=== PATIENT | female | born 1995 | race Caucasian/White ===

== ENCOUNTER 2018-07-08 22:39 | Inpatient (IN) | END 2018-07-11 13:10 | disposition home or self-care (01) | DRG 781 ==

== ENCOUNTER 2018-09-21 09:51 | Outpatient (CLI) | END 2018-09-21 12:30 | disposition home or self-care (01) ==

== ENCOUNTER 2018-10-26 22:29 | Outpatient (CLI) | payer MEDICAID ==
[~2018-10-26] VITALS: Ht 157.5 cm; Wt 60.2 kg
[2018-10-26 23:10] VITALS: BP 128/60; PULSE 57; RESP 18
[2018-10-26] MEDS ORDERED: PREN-19 PO (23:18)
--- NOTE | 2018-10-27 00:53 | PN ---
Triage Information Date/Time October 26, 2018 Reason for visit: Rule out IUGR Weeks of Gestation 39 weeks /Para 1 para 0 Diabetes: none Hypertention: none Additional information 23-year-old with IUP at 39 weeks was sent to triage for ultrasound rule out IUGR due to size less than dates and evaluation in the office visit. She de nies any leaking of fluid, vaginal bleeding decreased movement or uterine contractions. Objective Vital Signs Date Temp Pulse Resp B/P (MAP) Pulse Ox O2 O2 Flow FiO2 Time Delivery Rate 10/26/18 97.8 57 18 128/60 Room Air 23:10 (82) Heart Rate: 130's Heart Rate Comments Category 1 Contractions: None Results/Medications Imaging Results PROCEDURE: US OB. CLINICAL INDICATION: Uterine contractions TECHNIQUE: Pelvic ultrasound performed for biophysical profile. COMPARISON: 09/21/2018 FINDINGS: Single intrauterine gestation present with heart rate at 134 beats per minute. Presentation is cephalic. Placenta is anterior, grade II. Biophysical profile score is 8/8 (breathing=2, movement=2, tone =2, fluid volume=2). Amniotic fluid volume is within normal limits, with ORLIN = 10.82 cm. RPTAT:HJJR IMPRESSION: Biophysical profile score 8/8. PROCEDURE: US OB CLINICAL INDICATION: . labor. TECHNIQUE: Multiple transabdominal sonographic images of the pelvis and gravid uterus were obtained. The images were reviewed on a PACS workstation. COMPARISON: 09/13/2018. FINDINGS: Cervix: Not visualized Gestation: Single viable intrauterine gestation. Cardiac activity: 139 beats per minute. Presentation: Cephalic Placenta: Location: Anterior. Appearance: Grade II. No previa or abruption. Amniotic Fluid: ORLIN = 10.8 cm Measurements: BPD = 9.16 cm, 37 weeks 1 days HC = 32.78 cm, 37 weeks 2 days AC = 33.08 cm, 37 weeks 0 days FL = 7.20 cm, 36 weeks 6 days Gestational Age: AUA estimated gestational age: 37 weeks 1 days LMP estimated gestational age: 38 weeks 6 days AUA estimated date of delivery: 11/15/2018 The EFW = 3093 g, 23 %ile based on LMP age. Structures: Anatomic survey is not performed RPTAT:HJJR IMPRESSION: 1. Single living intrauterine gestation in cephalic presentation of 37 weeks 1 days by ultrasound criteria. 2. Estimated date of delivery of 11/15/2018. 3. The estimated weight is 3093 g. 4. No abnormality identified. Disposition: Discharge Assessment/Plan IUP at 39 weeks Size appears to be less than dates however ultrasound showed normal growth. E stimated weight 23 percentile. testing reassuring Normal amniotic fluid. BPP: 06/01 NST: Category 1 No evidence of labor Patient will be discharged home Strict labor precautions kick count and follow-up within 48 hours with primary OB office discussed with the patient Patient verbalized understanding. All questions were answered to patient's best satisfaction OVIDIO VIDAL MD Oct 27, 2018 00:53
--- NOTE | 2018-10-27 02:59 | TRIAGE ---
OB Triage Datetime Report Generated by CPN: 10/27/2018 02:58 Datetime: 10/27/2018 00:16 Stage of : OB Triage Labor Evaluation Monitor Mode: External Quality: Mild Pattern: Normal: <= 5 Contractions in 10 Minutes Resting Tone Prosper: Relaxed Heart Rate FHR Baseline Rate: 130 Monitor Mode: External US FHR Baseline Changes: No Baseline Change Variability: Moderate 6-25 bpm Accelerations: 15X15 Decelerations: None Category: Category I Datetime: 10/26/2018 23:30 Stage of : OB Triage Labor Evaluation Monitor Mode: External Quality: Mild Pattern: Normal: <= 5 Contractions in 10 Minutes Resting Tone Prosper: Relaxed Heart Rate FHR Baseline Rate: 130 Monitor Mode: External US FHR Baseline Changes: No Baseline Change Variability: Moderate 6-25 bpm Accelerations: 15X15 Decelerations: None Category: Category I Datetime: 10/26/2018 22:48 Stage of : OB Triage Maternal Assessment Level of Consciousness: Fully Conscious Headache: Denies Blurred Vision: No Respiratory Effort: Unlabored Nausea/Vomiting: Denies RUQ Epigastric Pain: Denies Facial Edema: None Labor Evaluation Monitor Mode: External Resting Tone Prosper: Relaxed Heart Rate FHR Baseline Rate: 130 Monitor Mode: External US Pain Assessment Pain Scale: 0 Pain Presence: None/Denies Pain Type: N/A Datetime: 10/26/2018 22:30 Time of Arrival: 10/26/2018 22:21 EGA: 38.6 Arrived By: Ambulatory Arrived From: Home Chief Complaint: sent from clinic to [facility] size<dates Movement: Present Contractions: Denies/Absent Rupture of Membranes: Denies Vaginal Bleeding: None Vaginal Discharge: Denies Recent Sexual Intercouse: Denies Abdominal Trauma: Not Applicable Patient Complaints: None Time Provider Notified: 10/26/2018 22:30 Provider Notified: Dr Tong Initial Plan: EFM,EFW,BPP Datetime: 09/21/2018 10:31 Fall Risk Assessment Fall Score: 0 Fall Risk Score Definition: No Risk: No action required Datetime: 09/21/2018 10:30 EGA: 33.6 Datetime: 07/11/2018 08:16 Fall Risk Assessment Fall Score: 20 Fall Risk Score Definition: No Risk: No action required Datetime: 07/10/2018 19:25 Fall Risk Assessment Fall Score: 0 Fall Risk Score Definition: No Risk: No action required Datetime: 07/10/2018 07:24 Fall Risk Assessment Fall Score: 20 Fall Risk Score Definition: No Risk: No action required Datetime: 07/09/2018 19:50 Fall Risk Assessment Fall Score: 20 Fall Risk Score Definition: No Risk: No action required Datetime: 07/08/2018 23:45 Fall Risk Assessment Fall Score: 0 Fall Risk Score Definition: No Risk: No action required
== END 2018-10-27 00:47 | disposition home or self-care (01) ==
LOC: OBT 22:29 → L-D 22:30 → OBT 10-27 00:47
PROVIDERS: ATTEND Obstetrics & Gynecology
DX: O26.843 Uterine size-date discrepancy, third trimester (principal); Z3A.39 39 weeks gestation of pregnancy
CPT/HCPCS: 76815; 76818; Z7500; G0463

== ENCOUNTER 2018-11-07 06:00 | Inpatient (IN) | payer MEDICAID ==
[~2018-11-07] VITALS: Ht 157.5 cm; Wt 60.5 kg
[~2018-11-07 06:00] MED LIST: PREN-19 PO
[2018-11-07 07:30] VITALS: BP 124/71; PULSE 71; RESP 20
[2018-11-07] MEDS ORDERED: LACTATED RINGER'S 1,000 ML IV PRN (07:36)
[2018-11-07] MEDS ORDERED: METHYLERGONOVINE 0.2 MG INJ IM PRN (08:00)
[2018-11-07] MEDS ORDERED: LIDOCAINE 1% (MPF) 30 ML INJ INJ PRN (08:00)
[2018-11-07] MEDS ORDERED: CARBOPROST 250 MCG INJ IM PRN (08:00)
[2018-11-07] MEDS ORDERED: MISOPROSTOL 200 MCG TAB PR PRN (08:00)
[2018-11-07] MEDS ORDERED: IBUPROFEN 600 MG TAB PO PRN (08:00)
[2018-11-07] MEDS ORDERED: OXYTOCIN 30 UNITS/LR 500 ML IV PRN (08:00)
[2018-11-07] MEDS ORDERED: BUTORPHANOL 1 MG INJ IV PRN (08:00)
[2018-11-07] MEDS ORDERED: BUTORPHANOL 2 MG INJ IV PRN (08:00)
[2018-11-07] MEDS ORDERED: OXYTOCIN 30 UNITS/LR 500 ML IV SCH ×2 (08:00)
[2018-11-07 08:30] VITALS: Ht 157.5 cm; Wt 60.5 kg
[2018-11-07] MEDS: LACTATED RINGER'S 1,000 ML IV SCH ×2 (09:21→16:36)
[2018-11-07] MEDS ORDERED: MISOPROSTOL 50 MCG CAPSULE PO SCH (10:00)
[2018-11-08] MEDS: LACTATED RINGER'S 1,000 ML IV SCH ×2 (00:41→06:52)
[2018-11-08] MEDS ORDERED: FENTAnyl 2MCG/ML-ROPIV 0.2% 100 ML ONE (00:43)
--- NOTE | 2018-11-08 00:52 | PREAC ---
Date/Time of Note Date/Time of Note DATE: 11/08/18 TIME: 00:51 Anesthesia Eval and Record Evaluation Time Pre-Procedure Interview DATE: 11/08/18 TIME: 00:51 Age 23 Sex female NPO: 8 hrs Preoperative diagnosis Labor Pain Planned procedure Labor Epidural Past Medical History Past Medical History: Includes Heme: Anemia : : (1), Para: (0), Gestational age: (39) Surgery & Anesthesia Issues No known issue Meds Anticoagulation: No Beta Mary within 24 hr: No Reason Beta Mary not given: Pt. not on B-Mary Reported Medications Vit #76/Iron,Carb/FA (Prenatabs Rx Tablet) 1 Each Tablet, 1 EACH PO DAILY, TAB 10/26/18 Current Medications Lactated Ringer's 1,000 ml @ 125 mls/hr Q8H IV Last administered on 11/08/18at 00:41; Admin Dose 125 MLS/HR; Start 11/07/18 at 07:36 Butorphanol Tartrate (Stadol) 1 mg Q2H PRN IV PAIN; Start 11/07/18 at 08:00 Butorphanol Tartrate (Stadol) 2 mg Q2H PRN IV PAIN; Start 11/07/18 at 08:00 Lidocaine (Xylocaine 1% (Mpf)) 30 ml ONCE PRN INJ EPISIOTOMY; Start 11/07/18 at 08:00 Oxytocin/Lactated Ringer's 500 ml @ 500 mls/hr ONCE POST IV ; Start 11/07/18 at 08:00 Oxytocin/Lactated Ringer's 500 ml @ 125 mls/hr POST IV ; Start 11/07/18 at 08:00 Ibuprofen (Motrin) 600 mg ONCE PRN PO PAIN LEVEL 1-5; Start 11/07/18 at 08:00 Lactated Ringer's 1,000 ml @ 2,000 mls/hr Q30M PRN IV ANESTHESIA Last administered on 11/08/18at 00:02; Admin Dose 2,000 MLS/HR; Start 11/07/18 at 07:36 Oxytocin/Lactated Ringer's 500 ml @ 0 mls/hr ONCE PRN IV VAGINAL BLEEDING; Start 11/07/18 at 08:00 Methylergonovine Maleate (Methergine) 0.2 mg ONCE PRN IM VAGINAL BLEEDING; Start 11/07/18 at 08:00 Carboprost Tromethamine (Hemabate) 250 mcg ONCE PRN IM VAGINAL BLEEDING; Start 11/07/18 at 08:00 Misoprostol (Cytotec) 1,000 mcg ONCE PRN NV VAGINAL BLEEDING; Start 11/07/18 at 08:00 Misoprostol (Cytotec 50 Mcg Capsule) 50 mcg Q4 PO Last administered on 11/07/18at 10:04; Admin Dose 50 MCG; Start 11/07/18 at 10:00 Meds reviewed: Yes Allergies Coded Allergies: No Known Allergy (Unverified , 10/26/18) Allergies Reviewed: Yes Labs/Studies Labs Reviewed: Reviewed by anesthesiologist Result Diagram: 11/07/18 0830 Laboratory Tests 11/07/18 08:30 Blood Bank Test 11/07/18 08:30 Antibody Identification Completed Antibody Screen POSITIVE Blood Type A NEGATIVE Rh Immune Globulin Candidate NO test: Positive Studies: ECG (n/a), CXR (n/a) Pre-procedure Exam Last vitals Vital Signs Date Temp Pulse Resp B/P (MAP) Pulse Ox O2 O2 Flow FiO2 Time Delivery Rate 11/07/18 98.1 71 20 124/71 Room Air 07:30 (88) Airway: Adequate mouth opening, Adequate thyromental dist Mallampati: Mallampati II Teeth: Normal Lung: Normal Heart: Normal ASA Physical Status ASA physical status: 2 Emergency: None Planned Anesthetic Neuraxial: Epidural Planned Pain Management Epidural Pre-operative Attestations Prior to commencing anesthesia and surgery, the patient was re-evaluated, there was verification of: *The patient's identity *The results of appropriate recent lab work and preoperative vital signs *The above evaluation not changing prior to induction *Anesthetic plan, risk benefits, alternative and complications discussed with patient/family; questions answered; patient/family understands, accepts and wishes to proceed. MILTON ULLOA MD Nov 08, 2018 00:52
--- NOTE | 2018-11-08 00:55 | PAC ---
Date/Time of Note Date/Time of Note DATE: 11/08/18 TIME: 00:54 Post-Anesthesia Notes Post-Anesthesia Note Last documented vital signs Vital Signs Date Temp Pulse Resp B/P (MAP) Pulse Ox O2 O2 Flow FiO2 Time Delivery Rate 11/08/18 98.1 71 20 124/71 99 Room Air 24:50 (88) Activity: WNL Respiratory function: WNL Cardiovascular function: WNL Mental status: Baseline Pain reasonably controlled: Yes Hydration appropriate: Yes Nausea/Vomiting absent: Yes MILTON ULLOA MD Nov 08, 2018 00:55
[2018-11-08] MEDS ORDERED: FENTAnyl 2MCG/ML-ROPIV 0.2% 100 ML BAG EPI SCH (01:00)
[2018-11-08] MEDS ORDERED: OXYTOCIN 10 UNIT INJ IM ONE (01:00)
[2018-11-08] MEDS ORDERED: MINERAL OIL LIGHT 10 ML VIAL TOP ONE (14:30)
[2018-11-08] MEDS ORDERED: OXYTOCIN 30 UNITS/LR 500 ML IV SCH (17:22)
--- NOTE | 2018-11-08 17:22 | LDN ---
Date/Time of Note Date/Time of Note DATE: 11/08/18 TIME: 17:21 Delivery Summary Weeks of Gestation 40 Placenta Delivered: Spontaneously Meconium: none Episiotomy: Yes Laceration repair: rmle repair with 2-0 and 3-0 chromic Anesthesia type: Epidural Estimated blood loss: 300 Sponge & Needle done & correct: Yes All needle counts correct: Yes Any foreign bodies felt in the: No Delivery Information Sex Sex: male Apgars 1 Minute: 9 5 Minute: 9 Suctioning Nose & mouth suctioned at jacqueline: No Delee suction performed: No Umbilical Cord Umbilical cord with: 3 Vessels Cord presentations: nuchal cord Nuchal cord present X: 1 Cord Blood was obtained: Yes JAYLYN MERINO MD Nov 08, 2018 17:22
[2018-11-08] MEDS ORDERED: CARBOPROST 250 MCG INJ IM PRN (17:30)
[2018-11-08] MEDS ORDERED: BENZOCAINE 20% 56 ML SPRAY TOP PRN (17:30)
[2018-11-08] MEDS ORDERED: LANOLIN HPA 1 PKT TOP PRN (17:30)
[2018-11-08] MEDS ORDERED: MISOPROSTOL 200 MCG TAB PR PRN (17:30)
[2018-11-08] MEDS ORDERED: NACL 0.9% 3 ML SYG IV SCH (17:30)
[2018-11-08] MEDS ORDERED: OXYTOCIN 30 UNITS/LR 500 ML IV PRN (17:30)
[2018-11-08] MEDS ORDERED: ONDANSETRON 4 MG INJ IV PRN (17:30)
[2018-11-08] MEDS ORDERED: DIBUCAINE 1% 30 GM OINT TOP PRN (17:30)
[2018-11-08] MEDS ORDERED: WITCH HAZEL/GLYCERIN PAD PR PRN (17:30)
[2018-11-08] MEDS ORDERED: METHYLERGONOVINE 0.2 MG INJ IM PRN (17:30)
[2018-11-08] MEDS ORDERED: OXYCODONE/ASPIRIN (4.88/325) TAB PO PRN ×4 (17:30→21:30)
[2018-11-08] MEDS: IBUPROFEN 600 MG TAB PO SCH (18:00)
[2018-11-08 19:50] VITALS: BP 118/68; PULSE 84; RESP 18
[2018-11-08] MEDS: SENNA/DOCUSATE NA (8.6MG/50MG) TAB PO SCH (21:00)
[2018-11-09 00:03] VITALS: BP 103/56; PULSE 87; RESP 18
[2018-11-09] MEDS: IBUPROFEN 600 MG TAB PO SCH ×4 (00:20→17:58)
[2018-11-09 04:01] VITALS: BP 108/62; PULSE 87; RESP 18
[2018-11-09 07:45] VITALS: BP 102/61; PULSE 69; RESP 17
[2018-11-09] MEDS: SENNA/DOCUSATE NA (8.6MG/50MG) TAB PO SCH ×2 (09:04→21:25)
[2018-11-09] MEDS: FERROUS SULFATE (EC) 325 MG TAB PO SCH ×2 (10:34→21:25)
[2018-11-09 12:00] VITALS: BP 135/70; PULSE 85; RESP 19
--- NOTE | 2018-11-09 12:36 | DS ---
Date/Time of Note Date/Time of Note DATE: 11/09/18 TIME: 12:35 Obstetrical Discharge Record Final Diagnosis Final Diagnosis: Term delivered Vaginal Delivery Obstetrical Delivery: Spontaneous, Episiotomy, Repaired Complications Augmentation: No Induction: Yes Condition on Discharge Physical Assessment Last Vitals: stable afebrile Voiding: Yes Bowel Movement: Yes Breast: Soft, non-tender, Filling Fundus: Firm Episiotomy: intact Calf Tenderness: No Patient Condition: JAYLYN Badillo MD Nov 09, 2018 12:36
--- NOTE | 2018-11-09 12:36 | PD.PPDC ---
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
--- NOTE | 2018-11-09 13:39 | PREOPHP ---
DATE OF ADMISSION: 11/07/2018 HISTORY OF PRESENT ILLNESS: Ms. Evie Armstrong is a 23-year-old 1, para 0, EDC of 0 11/03/2018, intrauterine at 40 weeks and 5 days gestational age, admitted for post-EDC induc tion. She denies any vaginal bleeding or discharge. Her care took place at [facility]. PAST MEDICAL HISTORY: None. MEDICATIONS: vitamins. PAST SURGICAL HISTORY: None. OBSTETRIC HISTORY: Primigravida. GYNECOLOGIC HISTORY: 14, regular, 3 to 4 days. Denies any sexually transmitted disease. Sexually a ctive with 1 partner. SOCIAL HISTORY: Denies any smoking, drugs or alcohol. FAMILY HISTORY: None. REVIEW OF SYSTEMS: All within normal except history of present illness. PHYSICAL EXAMINATION: HEENT: Within normal. LUNGS: CTA bilaterally. CARDIOVASCULAR: S1, S2. Regular rate, rhythm. ABDOMEN: Gravid, nontender. Negative CVA bilateral. EXTREMITIES: No calf tenderness. PELVIC: Vaginal exam: 1 cm dilated, 40% effaced, -3 station. heart tracing category 1. [place] : Occasional contractions. ASSESSMENT: Intrauterine at term, admitted for post-EDC induction. PLAN: Start with Cytotec for cervical ripening followed by Pitocin as needed. Dictated By: JAYLYN TUTTLE/BURT Conf#: [id number] DID#: [id number]
[2018-11-09 16:30] VITALS: BP 115/61; PULSE 82; RESP 20
[2018-11-09 20:35] VITALS: BP 106/53; PULSE 84; RESP 19
[2018-11-10] MEDS: IBUPROFEN 600 MG TAB PO SCH ×3 (00:08→12:22)
[2018-11-10 04:00] VITALS: BP 107/51; PULSE 66; RESP 18
[2018-11-10 08:00] VITALS: BP 85/48; PULSE 64; RESP 18
[2018-11-10] MEDS ORDERED: VITAMIN A & D 5 GM OINT PACKET TOP ONE (09:17)
[2018-11-10] MEDS ORDERED: INFLUENZA VIRUS VACCINE 0.5 ML (DISPENSING) IM* ONE (10:00)
[2018-11-10] MEDS: SENNA/DOCUSATE NA (8.6MG/50MG) TAB PO SCH (10:51)
[2018-11-10] MEDS: FERROUS SULFATE (EC) 325 MG TAB PO SCH (10:51)
== END 2018-11-10 16:04 | disposition home or self-care (01) | DRG 807 ==
LOC: L-D 07:18 → PP1 11-08 20:01
PROVIDERS: ADMIT Obstetrics & Gynecology; ATTEND Obstetrics & Gynecology
PROC: 3E033VJ Introduction of Other Hormone into Peripheral Vein, Percutaneous Approach (ICD-10-PCS; 2018-11-07)
PROC: 10E0XZZ Delivery of Products of Conception, External Approach (ICD-10-PCS; principal; 2018-11-08)
PROC: 0W8NXZZ Division of Female Perineum, External Approach (ICD-10-PCS; 2018-11-08)
DX: O48.0 Post-term pregnancy (principal); O69.81X0 Labor and delivery complicated by cord around neck, without compression, not applicable or unspecified; Z37.0 Single live birth; Z3A.40 40 weeks gestation of pregnancy
CPT/HCPCS: 62319; 76815; 85025; 85610; 85730; 86592; 86850; 86870; 86885; 86900; 86901; 99464; J2210; J2590; J2790; J3010; J7120